=== PATIENT | male | born 1975 | race Caucasian/White ===

== ENCOUNTER 2021-02-26 08:26 | Inpatient (IN) | payer OTHER ==
[2021-02-26 10:15] VITALS: BMI 24.2
[2021-02-26] MEDS ORDERED: MENTHOL/PHENOL 1 EACH UD MM PRN (10:57)
[2021-02-26] MEDS ORDERED: cloNIDine HCL 0.1 MG TABLET PO PRN (10:57)
[2021-02-26] MEDS ORDERED: IBUPROFEN 400 MG TABLET (FP) PO PRN (10:57)
[2021-02-26] MEDS ORDERED: ONDANSETRON *ODT* 4 MG TABLET SL PRN (10:57)
[2021-02-26] MEDS ORDERED: methaDONE HCL 10 MG TABLET (FOR DETOX USE ONLY) PO ONE (10:57)
[2021-02-26] MEDS ORDERED: BISMUTH SUBSALICYLATE 262 MG/15 ML BTL PO PRN (10:57)
[2021-02-26] MEDS ORDERED: MAGNESIUM HYDROX 2400MG/30ML ORAL SUSPENSION 30 ML CUP PO PRN (10:57)
[2021-02-26] MEDS ORDERED: ACETAMINOPHEN 325 MG TABLET (FP) PO PRN ×2 (10:57)
[2021-02-26] MEDS ORDERED: METHOCARBAMOL 500 MG TABLET PO PRN (10:57)
[2021-02-26] MEDS ORDERED: MAG HYDROX/AL HYDROX/SIMETH 30 ML UNIT-DOSE CUP PO PRN (10:57)
[2021-02-26] MEDS ORDERED: MAGNESIUM CITRATE 300 ML BOTTLE PO PRN (10:57)
[2021-02-26] MEDS ORDERED: methaDONE HCL 10 MG TABLET (FOR DETOX USE ONLY) ONE (12:50)
[2021-02-26] MEDS: PRENATAL VITAMINS W/ FOLIC ACID TABLET (FP) PO SCH (12:54)
[2021-02-26] MEDS: hydrOXYzine PAMOATE 25 MG CAPSULE (FP) PO SCH ×3 (15:37→22:42)
[2021-02-26] MEDS: GABAPENTIN 300 MG CAPSULE PO SCH ×2 (15:44→22:42)
[2021-02-26] MEDS ORDERED: PATIENT'S OWN MEDICATION (NON-FORMULARY) (Gabapentin [Gabapentin] 800 MG Tablet) PO SCH (18:00)
[2021-02-26 18:03] LABS: BLOOD UREA NITROGEN 13.9 mg/dL (7-18)
[2021-02-26 18:05] LABS: BILIRUBIN,TOTAL 0.7 mg/dL (0.2-1); TOT PROT 7.9 g/dl (6.4-8.2)
[2021-02-26 18:13] LABS: HEMATOCRIT 43.5 % (35.4-49); HEMOGLOBIN 14.6 GM/dL (11.7-16.9); MCH 27.8 pg (25.7-33.7); MCHC 33.5 g/dl (32.0-35.9); MEAN PLT VOLUME 8.3 fl (7.5-11.1); PLATELET COUNT 185 10^3/uL (134-434); RBC 5.24 M/mm3 (4.00-5.60); RDW 14.3 % (11.9-15.9); WHITE BLOOD COUNT 5.2 K/mm3 (4.0-10.0)
[2021-02-26] MEDS: MELATONIN 5 MG TABLETS PO SCH (22:42)
[2021-02-26] MEDS: THIAMINE HCL 100 MG TABLET (FP) PO SCH (22:42)
[2021-02-27] MEDS: hydrOXYzine PAMOATE 25 MG CAPSULE (FP) PO SCH ×5 (05:26→22:00)
[2021-02-27] MEDS: GABAPENTIN 300 MG CAPSULE PO SCH ×3 (05:26→22:00)
[2021-02-27] MEDS ORDERED: methaDONE HCL 10 MG TABLET (FOR DETOX USE ONLY) ONE (08:44)
[2021-02-27] MEDS ORDERED: diazePAM 5 MG TABLET PO PRN (09:13)
[2021-02-27] MEDS ORDERED: ALPRAZolam 2 MG TABLET PO SCH (10:00)
[2021-02-27] MEDS: PRENATAL VITAMINS W/ FOLIC ACID TABLET (FP) PO SCH (10:20)
[2021-02-27] MEDS: NICOTINE 14 MG/24 HOURS TOPICAL PATCH TD SCH (10:24)
[2021-02-27] MEDS: diazePAM 5 MG TABLET PO PRN ×3 (11:21→22:01)
[2021-02-27] MEDS: NICOTINE 10 MG CARTRIDGE (INHALER) IH PRN (11:31)
[2021-02-27] MEDS: MELATONIN 5 MG TABLETS PO SCH (21:59)
[2021-02-27] MEDS: traZODone HCL 100 MG TABLET (FP) PO SCH (22:00)
[2021-02-27] MEDS: THIAMINE HCL 100 MG TABLET (FP) PO SCH (22:00)
[2021-02-28] MEDS: hydrOXYzine PAMOATE 25 MG CAPSULE (FP) PO SCH (05:13)
[2021-02-28] MEDS: GABAPENTIN 300 MG CAPSULE PO SCH ×3 (05:13→22:22)
[2021-02-28] MEDS: diazePAM 5 MG TABLET PO PRN ×5 (05:15→22:25)
[2021-02-28] MEDS ORDERED: hydrOXYzine PAMOATE 25 MG CAPSULE (FP) PO PRN (07:26)
[2021-02-28] MEDS ORDERED: methaDONE HCL 10 MG TABLET (FOR DETOX USE ONLY) PO ONE (10:00)
[2021-02-28] MEDS: PRENATAL VITAMINS W/ FOLIC ACID TABLET (FP) PO SCH (10:57)
[2021-02-28] MEDS: NICOTINE 14 MG/24 HOURS TOPICAL PATCH TD SCH (11:06)
[2021-02-28] MEDS: NICOTINE 10 MG CARTRIDGE (INHALER) IH PRN (12:35)
[2021-02-28] MEDS: MELATONIN 5 MG TABLETS PO SCH (22:22)
[2021-02-28] MEDS: THIAMINE HCL 100 MG TABLET (FP) PO SCH (22:22)
[2021-02-28] MEDS: traZODone HCL 100 MG TABLET (FP) PO SCH (22:22)
[2021-03-01] MEDS: GABAPENTIN 300 MG CAPSULE PO SCH (06:13)
[2021-03-01] MEDS: diazePAM 5 MG TABLET PO PRN ×2 (06:15→10:13)
[2021-03-01] MEDS ORDERED: methaDONE HCL 10 MG TABLET (FOR DETOX USE ONLY) ONE (09:08)
[2021-03-01 09:45] VITALS: BP 145/81; PULSE 82; TEMP 96.8
[2021-03-01] MEDS: PRENATAL VITAMINS W/ FOLIC ACID TABLET (FP) PO SCH (10:12)
[2021-03-01] MEDS: NICOTINE 14 MG/24 HOURS TOPICAL PATCH TD SCH (10:14)
[2021-03-01] MEDS: NICOTINE 10 MG CARTRIDGE (INHALER) IH PRN (10:15)
[2021-03-02] MEDS ORDERED: methaDONE HCL 10 MG TABLET (FOR DETOX USE ONLY) PO ONE (10:00)
== END 2021-03-01 13:45 | disposition left against medical advice (07) | DRG 770 ==
LOC: YASAS 08:26 → Y3N 13:16
PROVIDERS: ADMIT Allergy & Immunology; ATTEND Allergy & Immunology
PROC: HZ2ZZZZ Detoxification Services for Substance Abuse Treatment (ICD-10-PCS; principal; 2021-02-26)
DX: F11.23 Opioid dependence with withdrawal (principal); F13.280 Sedative, hypnotic or anxiolytic dependence with sedative, hypnotic or anxiolytic-induced anxiety disorder; F17.210 Nicotine dependence, cigarettes, uncomplicated; F41.9 Anxiety disorder, unspecified; F43.10 Post-traumatic stress disorder, unspecified; G58.8 Other specified mononeuropathies; R00.0 Tachycardia, unspecified; Z87.828 Personal history of other (healed) physical injury and trauma; Z56.0 Unemployment, unspecified
CPT/HCPCS: 36415; 80053; 85027; 86780; 93005; 93010; C9803; U0003; U0005